=== PATIENT | male | born 1965 | race African-American/Black ===

== ENCOUNTER 2017-01-08 19:19 | Emergency (ER) | payer SELFPAY ==
[~2017-01-08] VITALS: Ht 182.9 cm; Wt 110.0 kg
[2017-01-08 19:19] VITALS: BP 0/0
[~2017-01-08 19:19] MED LIST: EPINEPHRINE 0.1MG/ML (1:10,000) 10ML SYR ONE
== END 2017-01-08 20:35 | disposition expired ==
LOC: ER 20:17
DX: I46.9 Cardiac arrest, cause unspecified (principal)
CPT/HCPCS: 31500; 92950; 99285; J0171; Z7610